=== PATIENT | female | born 1980 | race Caucasian/White ===

== ENCOUNTER 2016-10-14 02:06 | Emergency (ER) | payer MEDICAID ==
--- NOTE | 2016-10-14 02:14 | ED Physician Chart ---
Chief Complaint/HPI - Patient Information Date Seen:: 10/14/16 Time Seen:: 02:10 Chief Complaint:: altered History of Present Illness:: 35-year-old female, brought in by EMS with acute, moderate, now improving, altered mental status after she was found at [facility] sleeping in a rankin about 20 minutes prior to arrival to the ER. Thought to be alcohol intoxication. History limited as patient is altered and unable to provide reliable history History provided by EMS Allergies:: Allergies Allergy/AdvReac Type Severity Reaction Status Date / Time No Known Allergies Allergy Verified 03/28/16 23:14 Historian:: Patient Review:: Nurse's Note Reviewed Review of Systems - Review of Systems Other: Complete system review otherwise unremarkable except as noted in HPI. Past Medical History - Past Medical History Past Medical History: No significant medical hx Family History: None Social History: Non Smoker, Alcohol, No Drug Use Surgical History: None Psychiatricy History: None Medication: None Family Medical History - Family Member Mother History Unknown: Yes Ethnicity: Non- Hx Family Cancer: No Hx Family Coronary Artery Disease: No Hx Family Congestive Heart Failure: No Hx Family Hypertension: No Hx Family Diabetes: Yes Father History Unknown: Yes Ethnicity: Non- Hx Family Cancer: Yes Hx Family Hypertension: Yes Physical Exam - Physical Examination Other:: INITIAL VITAL SIGNS: Reviewed by me GENERAL: Alert and interactive but sleepy. No acute distress HEAD: Head is normocephalic and atraumatic EYES: EOMI. . No scleral icterus. No conjunctival injection ENT: Moist mucous membranes. NECK: Supple. No masses. Full range of motion RESPIRATORY: No tachypnea. Clear breath sounds bilaterally. No wheezing, rales, or rhonchi CV: Regular rate and rhythm. No murmurs, rubs, or gallops ABDOMEN: Soft, non-distended, non-tender. No guarding. No rebound. No masses. EXTREMITIES: No deformity. No cyanosis. No edema. SKIN: Warm and dry. No obvious rashes. NEUROLOGIC: Alert and oriented. Face is symmetric. Speech is normal. Moves all extremities equally. Motor and sensory distally intact. Labs/Radiology/EKG Results - Lab Results Results: Lab Results 10/14/16 10/14/16 Range/Units 02:24 02:24 WBC 5.5 (4.8-10.8) Th/cmm RBC 3.79 L (3.80-5.10) Mil/cmm Hgb 12.0 (11.7-15.5) gm/dL Hct 35.6 D (35.0-45.0) % MCV 94.0 (81-100) fl MCH 31.8 H (27.0-31.0) pg MCHC Differential 33.8 (28.0-36.0) pg RDW 11.7 (11.5-20.0) % Plt Count 209 D (150-400) Th/cmm MPV 7.9 fl Neutrophils % 51.6 (40.0-80.0) % Lymphocytes % 41.3 (20.0-50.0) % Monocytes % 5.7 (2.0-10.0) % Eosinophils % 1.1 (0.0-5.0) % Basophils % 0.3 (0.0-2.0) % Sodium 138 (136-145) mEq/L Potassium 3.4 L (3.5-5.1) mEq/L Chloride 104 (98-107) mEq/L Carbon Dioxide 27.9 (21.0-31.0) mEq/L Anion Gap 9.5 (7.0-16.0) BUN 10 (7-25) mg/dL Creatinine 0.7 (0.6-1.2) mg/dL Est GFR ( Amer) > 60.0 ml/min Est GFR (Non-Af Amer) > 60.0 ml/min BUN/Creatinine Ratio 14.3 Glucose 84 (70-105) mg/dL Calcium 8.6 (8.6-10.3) mg/dL Ethyl Alcohol 193 H (0-10) mg/dL Assessment - Assessment General Assessment: ED observation Note: Patient placed in ED observation status at: 0300, to determine need for admission vs. potential discharge and outpatient follow-up. Patent re-evaluated every two hours during the ED course. Old records reviewed. Additional history obtained from all available sources. Observation course revealed: Patient was arousable and became more alert and oriented. At the time of final evaluation the patient appears appropriate for discharge and outpatient follow-up. Treated as: Alcohol intoxication Total ED observation time is greater than 3 hours. ED Septic Shock - . Is Septic Shock (SBP<90, OR Lactate>4 mmol\L) present?: No Reassessment (Disposition) - Reassessment Reassessment:: Patient was waking up and she arrived here at the ER. She was quickly becoming more responsive. Vital signs were reported to be unremarkable per fire department and EMS. Blood glucose was above 100. Patient rapidly become alert and oriented 4. She reports that she was drinking alcohol. Denies using any other drugs. Patient was able to sober up here in the ER. She received IV fluids. Labs are reviewed with the patient. She did eat a full meal. She was ambulating without any abnormal gait or assistance. Patient was ultimately discharged to home. Recommended follow-up with PCP 1-2 days. Gave return to ER precautions. Patient understood and agreed to the plan. Reassessment Condition:: Improved - Diagnosis Diagnosis:: Alcohol intoxication - Aftercare/Follow up Instructions Aftercare/Follow-Up Instructions:: Counseled pt regarding lab results/diagnosis & need follow up, Refer to Discharge Instructions - Patient Disposition Discharge/Transfer:: Home Time:: 06:49 Condition at Disposition:: Improved ED Discharge Plan - Patient Disposition Admit/Discharge/Transfer: PT DISCHARGED HOME Condition at Disposition: Improved Instructions: Alcohol Intoxication, [id number]
[2016-10-14] MEDS ORDERED: Sodium Chloride 0.9% 1,000 ML IV ONE (02:19)
[2016-10-14 02:38] LABS: % BASOPHILS 0.3 % (0.0-2.0); % EOSINOPHILS 1.1 % (0.0-5.0); % LYMPHOCYTES 41.3 % (20.0-50.0); % MONOCYTES 5.7 % (2.0-10.0); % NEUTROPHILS 51.6 % (40.0-80.0); MEAN CORPUSCULAR HEMOGLOBIN 31.8 pg (27.0-31.0); MEAN CORPUSCULAR HGB CONC 33.8 pg (28.0-36.0); MEAN PLATELET VOLUME 7.9 fl; NEUTROPHILE ABSOLUTE 2.8 Th/cmm (1.8-8.0); RED BLOOD COUNT 3.79 Mil/cmm (3.80-5.10); RED CELL DISTRIBUTION WIDTH 11.7 % (11.5-20.0); WHITE BLOOD COUNT 5.5 Th/cmm (4.8-10.8)
[2016-10-14 02:39] LABS: HEMATOCRIT 35.6 % (35.0-45.0); PLATELET COUNT 209 Th/cmm (150-400)
[2016-10-14 02:47] LABS: ANION GAP 9.5 (7.0-16.0); BUN - UREA NITROGEN 10 mg/dL (7-25); BUN/CREATININE RATIO 14.3; CALCIUM SERUM 8.6 mg/dL (8.6-10.3); CARBON DIOXIDE 27.9 mEq/L (21.0-31.0); CHLORIDE 104 mEq/L (98-107); CREATININE - SERUM 0.7 mg/dL (0.6-1.2); GLUCOSE 84 mg/dL (70-105); POTASSIUM SERUM 3.4 mEq/L (3.5-5.1); SODIUM SERUM 138 mEq/L (136-145)
== END 2016-10-14 07:10 | disposition home or self-care (01) ==
LOC: ER 02:06
DX: F10.129 Alcohol abuse with intoxication, unspecified (principal)
CPT/HCPCS: 36415-UA; 80048-TC; 80320-TC; 85025-TC; J7030; Z7502

== ENCOUNTER 2018-01-10 03:36 | Emergency (ER) | payer MEDICAID ==
[2018-01-10] MEDS ORDERED: Hydrocodone/APAP 5mg/325mg Tab PO ONE (04:40)
[2018-01-10] MEDS ORDERED: Acetaminophen 500 MG TAB PO ONE (04:41)
[2018-01-10] MEDS ORDERED: Acetaminophen 500 MG TAB ONE (04:49)
[2018-01-10] MEDS ORDERED: Hydrocodone/APAP 5mg/325mg Tab ONE (04:51)
[2018-01-10 04:54] LABS: URINE MICROSCOPIC INDICATED? YES; URINE SOURCE CLEAN C
[2018-01-10 05:00] LABS: HEMATOCRIT 36.2 % (41.0-60); MEAN CELL VOLUME 96.4 fl (81-100); MEAN CORPUSCULAR HGB CONC 33.2 pg (28.0-36.0); MEAN PLATELET VOLUME 7.3 fl; PLATELET COUNT 219 Th/cmm (150-400); RED BLOOD COUNT 3.75 Mil/cmm (3.80-5.10); RED CELL DISTRIBUTION WIDTH 13.5 % (11.5-20.0)
[2018-01-10 05:00] LABS: URINE BILIRUBIN NEGATIVE (NEGATIVE); URINE BLOOD TRACE (NEGATIVE); URINE GLUCOSE (UA) NEGATIVE (NEGATIVE); URINE KETONE NEGATIVE (NEGATIVE); URINE LEUKOCYTE ESTERASE SMALL (NEGATIVE); URINE NITRATE NEGATIVE (NEGATIVE); URINE PH 5.5 (4.6 - 8.0); URINE PROTEIN NEGATIVE (NEGATIVE); URINE UROBILINOGEN 0.2 E.U./dL (0.2 - 1.0)
[2018-01-10 05:02] LABS: WHITE BLOOD COUNT 3.7 Th/cmm (4.8-10.8)
[2018-01-10 05:03] LABS: MANUAL DIFF REQUIRED? YES
[2018-01-10 05:08] LABS: URINE CLARITY HAZY (CLEAR); URINE COLOR YELLOW
[2018-01-10 05:11] LABS: URINE BACTERIA FEW /hpf (NONE SEEN); URINE EPITHELIAL CELLS MODERATE /lpf (FEW); URINE RBC 0-2 /hpf (0-5)
[2018-01-10 05:12] LABS: ALB/GLOB RATIO 1.2 (1.0-1.8); ALBUMIN 3.7 gm/dL (3.7-5.3); ALKALINE PHOSPHATASE 88 U/L (34-104); BILIRUBIN,TOTAL 0.3 mg/dL (0.3-1.0); BUN - UREA NITROGEN 8 mg/dL (7-25); CALCIUM SERUM 8.7 mg/dL (8.6-10.3); CARBON DIOXIDE 25.4 mEq/L (21.0-31.0); CHLORIDE 101 mEq/L (98-107); CREATININE - SERUM 0.5 mg/dL (0.6-1.2); GFR AFRICAN-AMERICAN > 60.0 ml/min (>90); GFR NON AFRICAN-AMERICAN > 60.0 ml/min; GLUCOSE 89 mg/dL (70-105); POTASSIUM SERUM 3.4 mEq/L (3.5-5.1); SGOT 75 U/L (13-39); SGPT/ALT 24 U/L (7-52); SODIUM SERUM 135 mEq/L (136-145); TOTAL PROTEIN,SERUM 6.9 gm/dL (6.0-8.3)
[2018-01-10 05:26] LABS: AMPHETAMINE URINE POSITIVE (NEGATIVE); BARBITURATES URINE NEGATIVE (NEGATIVE); BENZODIAZEPINES QUAL URINE NEGATIVE (NEGATIVE); CANNABINOID THC NEGATIVE (NEGATIVE); COCAINE METABOLITE QUAL URINE NEGATIVE (NEGATIVE); METHADONE URINE NEGATIVE (NEGATIVE); METHAMPHETAMINES QUAL URINE POSITIVE (NEGATIVE); OPIATES (MORPHINE) QUAL. URINE NEGATIVE (NEGATIVE); PHENCYCLIDINE (PCP) URINE NEGATIVE (NEGATIVE); TRICYCLICS (TCA) QUAL. URINE NEGATIVE (NEGATIVE)
[2018-01-10 05:31] LABS: BAND NEUTROPHILE 50 % (0-10); LYMPHOCYTE 4 % (20-50); MONOCYTE 4 % (2-10); NEUTROPHILS 42 % (40-80); TOTAL CELLS COUNTED 100
[2018-01-10] MEDS ORDERED: Potassium Chloride 20 mEq ER Tab PO ONE ×2 (06:08→06:12)
--- NOTE | 2018-01-10 15:24 | ER Physician Documentation ---
DATE OF SERVICE: 01/10/2018 HISTORY OF PRESENT ILLNESS: She is a divorcee, mother of one 19-year-old son who does not stay with her. She comes here because of lower abdominal pain. The last time she was here was on 09/20/2017, which is before with the same complaint of abdominal pain for about 2 weeks' duration. Pain at that time was sharp and localizes the left lower quadrant. She gave a history that both her ovaries had been removed quite some time ago. She drinks 2 glasses of wine 2-3 times a week. She may be or not, she does not know. She has no other complaint other than her abdominal pain. SHE IS ALLERGIC TO TORADOL. The history was taken from the patient. She saw Dr. Lei at [facility]. I reviewed the older chart from Dr. Cruz who saw the patient and at that time, patient signed herself against medical advice. REVIEW OF SYSTEMS: Essentially benign and negative. A 12-point review of system is negative. CONSTITUTIONAL: No fever, no chills, no weight loss. No edema. SKIN: No rash, no bruising. HEAD: No headache, no head injury. EYES: No history of double vision, blurring, nystagmus. ENT: No history of any nasal discharge, sore throat. No history of any sinusitis. CARDIAC: No history of chest pain, palpitation, angina pectoris, myocardial infarction PULMONARY: No history of pneumonia, TB, pulmonary embolism, COPD, emphysema, bronchitis. GASTROINTESTINAL: Lower abdominal pain, otherwise no other complaints. She had some spotting for the past 1 week duration. She is very hesitant in giving any history to me. Asking me that we step off the way as to what that has to do with my coming here with abdominal pain and she reminded me four times as she is allergic to Toradol. MUSCULOSKELETAL: No bone pain, joint pain. ENDOCRINE: No diabetes mellitus, no hyperthyroidism or hypothyroidism. No Hayder syndrome, hemopoietic, no bruising, no lymphadenopathy. ALLERGIC: No urticaria. No angioedema. NEUROLOGICAL: The patient has no focal edema, no syncope. She says she lives here in [place] on one of the streets, she said the address is here in our computer. PAST MEDICAL HISTORY: To Dr. Cruz, she has had no past medical history. To me, she said both cysts were removed, but not the ovaries. Ovaries have been in place and I asked her if she is , she said maybe but she does not know about that. 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 SURGICAL HISTORY: She said ovarian cyst was removed over 8 years ago, both these ovarian cysts were removed. PSYCHIATRIC HISTORY: None. MEDICATIONS: None. FAMILY HISTORY: None. Parents are alive, one brother and she is a divorcee. Ethnicity is non-. No family history of any cancer. No family history of coronary artery disease, hypertension, diabetes, etc. Family history had cancer, initially says no and Dr. Cruz writes ____. PHYSICAL EXAMINATION: GENERAL: The patient looks like malingering and reminding me of not taking Toradol and I told her that we will take care of her abdominal pain and for her spotting, she has to go and see her own physician. To this, she agreed. HEENT: Eyes appears to be normal. Conjunctivae pink, sclerae white. HEENT is normal. Jugular venous pressure is normal. No cyanosis, petechia, ecchymosis. Peripheral pulses are normal. No gallop. CHEST: Clear. Trachea being central. Fairly good air entry in both lungs without any rales, rhonchi, bronchial breathing. ABDOMEN: Soft, benign, and negative except for lower abdominal pain where she has a vague tenderness, otherwise benign and negative. She is not allergic to any antibiotics that I know. She says she is allergic to TORADOL giving a rash to itching. She says she has dark red vaginal bleeding since yesterday, red colored bleeding. HEART: Reveals normal heart sounds. No fourth heart sound. Second heart sound is physiologically split. Third heart sound is absent. COSTOVERTEBRAL ANGLE: Both CVAs negative. Liver, spleen not enlarged. No free fluid in the abdominal cavity. No evidence of any diabetes, hypertension, no edema, no cyanosis, no petechia. No ecchymosis. CENTRAL NERVOUS SYSTEM: Normal. Able to walk and usually last time she came around 2:00 about 3-4 years ago. She goes to different hospitals as she says, various doctors at various hospitals. So she goes to different places. At the last time she signed against medical advice. today she does not go against medical advice. We will get her lab workup done and if there is no urinary tract infection, then the patient could be discharged home to see her own physician for further condition. Other diagnoses that she has is she drinks 2 glasses of wine for many years, white wine 2-3 times a week according to her, but it all depends. Everything, according to her, it all depends and does not want to give much history. She says she gets cramps in the lower abdomen for 8-10 hours. OTHER DIAGNOSES: Includes history of two cysts removed in the past and a past medical history includes history of Guillain-Bolt syndrome, liver cirrhosis, ovarian cyst removed and she takes Lyrica for her peripheral nerve pain. How many Lyrica, she says she does not tell me that. She does not have any septic condition. No septic shock was seen. ASSESSMENT: She has mainly of lower abdominal pain and dark vaginal bleeding since yesterday. ALLERGY TO TORADOL also. Pain is 5/10, lower abdominal pain. CODE STATUS: Full. VITAL SIGNS: Temperature 97.9, pulse of 88, respirations 18, blood pressure 115/82, oxygen saturation 100%, height 6 feet, weight 115 pounds. Last menstrual period 3 weeks ago. Further treatment depending upon the lab results that come. JOB# [id number]
== END 2018-01-10 06:35 | disposition home or self-care (01) ==
LOC: ER 03:36
DX: R10.30 Lower abdominal pain, unspecified (principal); N93.9 Abnormal uterine and vaginal bleeding, unspecified; Z88.5 Allergy status to narcotic agent; K74.60 Unspecified cirrhosis of liver
CPT/HCPCS: 99284; 96372; 36415; 83605; 80307; 85025; 81025; 80053; 87040; 85007; 85027; 81001; J0696; Z7502; Z7610

== ENCOUNTER 2018-03-24 04:00 | Emergency (ER) | payer MEDICAID ==
[2018-03-24] MEDS ORDERED: Morphine Sulfate 2 mg/mL 1mL Syr IVP ONE (04:43)
[2018-03-24] MEDS ORDERED: Sodium Chloride 0.9% 1,000 ML IV ONE (04:43)
--- NOTE | 2018-03-24 04:43 | ED Physician Chart ---
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 Pain, A/N/V/D/C, bleeding, paresthesias, weakness, dizziness, fever, chills, vertigo, visual or gait changes, or urinary s/s; pt is eating and urinating well; pt last urinated one hour PAEDODONTIST; LNMP; 03/22/18; pt denies Allergies:: Allergies Allergy/AdvReac Type Severity Reaction Status Date / Time ketorolac [From Toradol] Allergy Verified 03/24/18 04:34 Vitals:: Vital Signs - 8 hr 03/24/18 04:15 Temp 98.1 F HR 123 RR 18 BP 107/77 O2 Sat % 96 Historian:: Patient Review:: Nurse's Note Reviewed <Rony Duvall - Last Filed: 03/24/18 05:35> - Patient Information Allergies:: Allergies Allergy/AdvReac Type Severity Reaction Status Date / Time ketorolac [From Toradol] Allergy Verified 03/24/18 04:34 Vitals:: Vital Signs - 8 hr 03/24/18 03/24/18 03/24/18 04:15 06:45 07:25 Temp 98.1 F 98.2 F 98 F HR 123 88 88 RR 18 18 16 BP 107/77 132/78 116/80 O2 Sat % 96 100 99 <Roberto Tran - Last Filed: 03/24/18 11:14> ED Review of Systems - Review of Systems General/Constitutional: No fever, No chills, No weight loss, No weakness, No diaphoresis, No edema, No loss of appetite Skin: No skin lesions, No rash, No bruising Head: No headache, No light-headedness Eyes: No loss of vision, No pain, No diplopia ENT: No earache, No nasal drainage, No sore throat, No tinnitus Neck: No neck pain, No swelling, No thyromegaly, No stiffness, No mass noted Cardio Vascular: No chest pain, No palpitations, No PND, No orthopnea, No edema Pulmonary: No SOB, No cough, No sputum, No wheezing GI: No nausea, No vomiting, No diarrhea, No pain, No melena, No hematochezia, No constipation, No hematemesis G/U: No dysuria, No frequency, No hematuria, No nacturia 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, No abnormal vaginal bleed, No contraction Musculoskeletal: No bone or joint pain, Back pain, No muscle pain Endocrine: No polyuria, No polydipsia Psychiatric: No prior psych history, No depression, No anxiety, No suicidal ideation, No homicidal ideation, No auditory hallucination, No visual hallucination Hematopoietic: No bruising, No lymphadenopathy Allergic/Immuno: No urticaria, No angioedema Neurological: No syncope, No focal symptoms, No weakness, No paresthesia, No headache, No seizure, No dizziness, No confusion, No vertigo <Rony Duvall - Last Filed: 03/24/18 05:35> ED Past Medical History - Past Medical History Obtainable: Yes Past Medical History: Other (Guillian-Vienna Syndrome) Family History: HTN Social History: Non Smoker, Alcohol, No Drug Use, Single Surgical History: other (Left Ovarian Cyst Removal) Psychiatricy History: None Medication: Reviewed <ReshmamichaeltheaRony StackSocial Last Filed: 03/24/18 05:35> Family Medical History - Family Member Mother History Unknown: Yes Ethnicity: Non- Hx Family Cancer: No Hx Family Coronary Artery Disease: No Hx Family Congestive Heart Failure: No Hx Family Hypertension: No Hx Family Diabetes: Yes Father History Unknown: Yes Ethnicity: Non- Hx Family Cancer: Yes Hx Family Hypertension: Yes <ReshmamichaeltheaRony StackSocial Last Filed: 03/24/18 05:35> ED Physical Exam - Physical Examination General/Constitutional: Awake, Well-developed, well-nourished, Alert, No distress, GCS 15, Non-toxic appearing, Ambulatory Head: Atraumatic Eyes: Lids, conjuctiva normal, PERRL, EOMI Skin: Nl inspection, No rash, No skin lesions, No ecchymosis, Well hydrated, No lymphadenopathy ENMT: External ears, nose nl, TM canals nl, Nasal exam nl, Lips, teeth, gums nl , Oropharynx nl, Tonsils nl Neck: Nontender, Full ROM w/o pain, No JVD, No nuchal rigidity, No bruit, No mass, No stridor Other Neck comments:: supple; no meningeal signs; no cervical tenderness Respiratory: Nl effort/Exclusion, Clear to Auscultation, No Wheeze/Rhonchi/Rales Cardio Vascular: RRR, No murmur, gallop, rubs, NL S1 S2, Carotid/Femoral/Distal pulses equal bilaterally GI: No tenderness/rebounding/guarding, No organomegaly, No hernia, Normal BS's, Nondistended, No mass/bruits, No McBurney tenderness, Rectum exam nl Other GI comments:: no pulsatile masses : No CVA tenderness Extremities: No tenderness or effusion, Full ROM, normal strength in all extremities, No edema, Normal digits & nails Neuro/Psych: Alert/oriented, DTR's symmetric, Normal sensory exam, Normal motor strength, Judgement/insight normal, Mood normal, Normal gait, No focal deficits Other Neuro/Psych comments:: no focal signs Misc: Normal back, No paraspinal tenderness <Rony Duvall - Last Filed: 03/24/18 05:35> ED Labs/Radiology/EKG Results - Lab Results Results: Laboratory Tests 03/24/18 04:25 POC Ur Test Negative Comments:: U/A: + Pyuria; + Hematuria <Rony Duvall - Last Filed: 03/24/18 05:35> - Lab Results Results: Laboratory Tests 03/24/18 03/24/18 03/24/18 04:25 04:25 05:00 WBC 4.2 L RBC 3.69 L Hgb 12.3 Hct 35.0 L MCV 94.9 MCH 33.2 H MCHC Differential 35.0 RDW 11.6 Plt Count 238 MPV 7.6 Neutrophils % 49.3 Lymphocytes % 40.2 Monocytes % 8.3 Eosinophils % 0.5 Basophils % 1.7 Sodium Potassium Chloride Carbon Dioxide Anion Gap BUN Creatinine Est GFR ( Amer) Est GFR (Non-Af Amer) BUN/Creatinine Ratio Glucose Calcium Total Bilirubin AST ALT Alkaline Phosphatase Total Protein Albumin Globulin Albumin/Globulin Ratio Serum , Qual Urine Source CLEAN C Urine Color ORANGE Urine Clarity HAZY Urine pH 6.0 Ur Specific [place] <= 1.005 Urine Protein TRACE Urine Glucose (UA) NEGATIVE Urine Ketones NEGATIVE Urine Blood LARGE H Urine Nitrate NEGATIVE Urine Bilirubin NEGATIVE Urine Urobilinogen 0.2 Ur Leukocyte Esterase TRACE H Urine RBC 2-5 Urine WBC 6-10 H Ur Epithelial Cells MODERATE Urine Bacteria FEW POC Ur Test Negative Ethyl Alcohol 03/24/18 03/24/18 03/24/18 05:00 05:00 05:00 WBC RBC Hgb Hct MCV MCH MCHC Differential RDW Plt Count MPV Neutrophils % Lymphocytes % Monocytes % Eosinophils % Basophils % Sodium 138 Potassium 3.6 Chloride 104 Carbon Dioxide 26.8 Anion Gap 10.8 BUN 7 Creatinine 0.7 Est GFR ( Amer) > 60.0 Est GFR (Non-Af Amer) > 60.0 BUN/Creatinine Ratio 10.0 Glucose 93 Calcium 8.7 Total Bilirubin 0.3 AST 29 ALT 16 Alkaline Phosphatase 51 Total Protein 6.9 Albumin 4.0 Globulin 2.9 Albumin/Globulin Ratio 1.4 Serum , Qual NEGATIVE Urine Source Urine Color Urine Clarity Urine pH Ur Specific [place] Urine Protein Urine Glucose (UA) Urine Ketones Urine Blood Urine Nitrate Urine Bilirubin Urine Urobilinogen Ur Leukocyte Esterase Urine RBC Urine WBC Ur Epithelial Cells Urine Bacteria POC Ur Test Ethyl Alcohol 206 H - Radiology Results Results: Pelvic ultrasound negative <Roberto Tran - Last Filed: 03/24/18 11:14> ED Assessment - Assessment General Assessment: Patient's had left lower quadrant stabbing pain radiating to the left flank intermittently for last 2 weeks. Pain became constant last night. No vomiting or diarrhea. Patient had dysuria for 5 days ago which improve with cranberry juice. Patient had a cholecystectomy 3 years ago. She does not smoke cigarettes and drinks alcohol socially. Patient 7-8 years ago had surgery for left ovarian cyst. Family history positive for diabetes. Physical examination patient is well-developed well-nourished no acute distress. Eyes ears nose and throat normal. Neck supple. Chest clear symmetrical breath sounds. Heart regular rhythm no murmur or extra sound. Abdomen bowel sounds present abdomen is soft; there is suprapubic and left-sided abdominal tenderness. Bimanual pelvic exam performed at 0820: Cervical motion, suprapubic and left adnexal tenderness present. <Roberto Tran - Last Filed: 03/24/18 11:14> ED Septic Shock - . Is Septic Shock (SBP<90, OR Lactate>4 mmol\L) present?: No - <6hrs of presentation: Vital Signs: Vital Signs - 8 hr 03/24/18 04:15 Temp 98.1 F HR 123 RR 18 BP 107/77 O2 Sat % 96 <Rony Duvall - Last Filed: 03/24/18 05:35> - <6hrs of presentation: Vital Signs: Vital Signs - 8 hr 03/24/18 03/24/18 03/24/18 04:15 06:45 07:25 Temp 98.1 F 98.2 F 98 F HR 123 88 88 RR 18 18 16 BP 107/77 132/78 116/80 O2 Sat % 96 100 99 <Roberto Tran - Last Filed: 03/24/18 11:14> ED Reassessment (Disposition) - Reassessment Reassessment:: Even though the pelvic ultrasound is negative patient has left adnexal tenderness so I believe her pain is from a left ovarian cyst. Reassessment Condition:: Unchanged - Diagnosis Diagnosis:: Left ovarian cyst - Aftercare/Follow up Instructions Aftercare/Follow-Up Instructions:: Refer to Discharge Instructions - Patient Disposition Discharge/Transfer:: Home Condition at Disposition:: Stable, Unchanged <Roberto Tran - Last Filed: 03/24/18 11:14>
[2018-03-24] MEDS ORDERED: Morphine Sulfate 2 mg/mL 1mL Syr ONE (04:48)
[2018-03-24 05:06] LABS: URINE MICROSCOPIC INDICATED? YES; URINE SOURCE CLEAN C
[2018-03-24 05:12] LABS: % BASOPHILS 1.7 % (0.0-2.0); % EOSINOPHILS 0.5 % (0.0-5.0); % LYMPHOCYTES 40.2 % (20.0-50.0); % MONOCYTES 8.3 % (2.0-10.0); % NEUTROPHILS 49.3 % (40.0-80.0); BASOPHILE ABSOLUTE 0.1 Th/cumm (0-0.2); HEMOGLOBIN 12.3 gm/dL (12-16); LYMPHOCYTE ABSOLUTE 1.7 Th/cmm (1.5-3.0); MEAN CELL VOLUME 94.9 fl (81-100); MEAN CORPUSCULAR HEMOGLOBIN 33.2 pg (27.0-31.0); MEAN PLATELET VOLUME 7.6 fl; MONOCYTE ABSOLUTE 0.3 Th/cmm (0.3-1.0); NEUTROPHILE ABSOLUTE 2.1 Th/cmm (1.8-8.0); PLATELET COUNT 238 Th/cmm (150-400); RED BLOOD COUNT 3.69 Mil/cmm (3.80-5.10); RED CELL DISTRIBUTION WIDTH 11.6 % (11.5-20.0); WHITE BLOOD COUNT 4.2 Th/cmm (4.8-10.8)
[2018-03-24 05:22] LABS: URINE BILIRUBIN NEGATIVE (NEGATIVE); URINE BLOOD LARGE (NEGATIVE); URINE GLUCOSE (UA) NEGATIVE (NEGATIVE); URINE KETONE NEGATIVE (NEGATIVE); URINE LEUKOCYTE ESTERASE TRACE (NEGATIVE); URINE NITRATE NEGATIVE (NEGATIVE); URINE PROTEIN TRACE mg/dL (NEGATIVE); URINE UROBILINOGEN 0.2 E.U./dL (0.2 - 1.0)
[2018-03-24 05:26] LABS: URINE CLARITY HAZY (CLEAR); URINE COLOR ORANGE
[2018-03-24 05:27] LABS: URINE BACTERIA FEW /hpf (NONE SEEN); URINE EPITHELIAL CELLS MODERATE /lpf (FEW)
[2018-03-24 05:29] LABS: ALB/GLOB RATIO 1.4 (1.0-1.8); ALKALINE PHOSPHATASE 51 U/L (34-104); ANION GAP 10.8 (7.0-16.0); BILIRUBIN,TOTAL 0.3 mg/dL (0.3-1.0); BUN - UREA NITROGEN 7 mg/dL (7-25); CALCIUM SERUM 8.7 mg/dL (8.6-10.3); CARBON DIOXIDE 26.8 mEq/L (21.0-31.0); CHLORIDE 104 mEq/L (98-107); CREATININE - SERUM 0.7 mg/dL (0.6-1.2); GFR AFRICAN-AMERICAN > 60.0 ml/min (>90); GFR NON AFRICAN-AMERICAN > 60.0 ml/min; GLUCOSE 93 mg/dL (70-105); POTASSIUM SERUM 3.6 mEq/L (3.5-5.1); SGOT 29 U/L (13-39); SGPT/ALT 16 U/L (7-52); SODIUM SERUM 138 mEq/L (136-145); TOTAL PROTEIN,SERUM 6.9 gm/dL (6.0-8.3)
[2018-03-24] MEDS ORDERED: cefTRIAXone 1 GM in Sodium Chloride 0.9% 50 ML IV ONE (05:42)
--- NOTE | 2018-03-24 07:46 | Diagnostic Imaging Report ---
CT scan abdomen and pelvis without intravenous contrast HISTORY: Pain Total DLP equals 450 CTDI equals 9.5 Axial sections were obtained from the xiphoid process down to the pubic symphysis. The liver exhibits a homogeneous parenchyma. No focal lesions. The spleen appears normal. No focal abnormality seen within the region pancreas. Intraluminal calcification noted in the dependent region of the gallbladder consistent with cholelithiasis. No significant focal renal lesions. No hydronephrosis. The exam of the pelvis demonstrates preservation of normal fat planes. There is a bulbous shaped uterus. No definite abnormal masses or abnormal fluid collections. Several punctate calcifications noted in the lower pelvis which appear to be outside of the urinary tract. IMPRESSION: 1. Findings consistent with cholelithiasis 2. No other acute abnormalities.
[2018-03-24] MEDS ORDERED: Morphine Sulfate 4 mg/mL 1mL Syr IVP STA (07:47)
--- NOTE | 2018-03-24 07:47 | Diagnostic Imaging Report ---
CT scan lumbar spine HISTORY: Pain Total DLP equals 990 CTDI equals 39.0 Axial sections were obtained through the lumbar spine. Additional sagittal and coronal reformatted images are provided. Alignment is normal. Disc spaces are maintained. Suggestion of mild central disc protrusion L4-5. Schmorl node formation seen within the inferior endplate of L3. Punctate calcification noted within the lower portion of the intervertebral disc at L4-5. Incidentally noted are changes consistent with cholelithiasis. IMPRESSION: 1. No acute abnormalities 2. Schmorl node formation seen within the inferior endplate of L3 3. Cholelithiasis
[2018-03-24] MEDS ORDERED: Morphine Sulfate 4 mg/mL 1mL Syr ONE (08:03)
--- NOTE | 2018-03-24 11:38 | Diagnostic Imaging Report ---
Pelvic ultrasound HISTORY: Pain The exam is limited to transabdominal sonographic technique. There is a normal uterine size (8.0 x 5.1 x 5.8 cm). No focal myometrial lesions are seen. The endometrium measures 6.4 mm thickness. The right ovary measures 2.6 x 1.3 x 1.6 cm. No abnormal masses. The left ovary measures 2.6 x 1.6 x 1.5 cm. No focal lesions. No free fluid within the pelvis. IMPRESSION: Normal examination
== END 2018-03-24 11:11 | disposition home or self-care (01) ==
LOC: ER 04:00
DX: N83.202 Unspecified ovarian cyst, left side (principal); Z90.49 Acquired absence of other specified parts of digestive tract; Z88.8 Allergy status to other drugs, medicaments and biological substances
CPT/HCPCS: 99285; 96365; 96375; 96376; 76856; 72131; 74176; 36415; 85025; 87086; 81001; 80320; 84703; 81025; 80053; J2270; J2405; J0696; J7030